=== PATIENT | female | born 1990 | race Caucasian/White ===

== ENCOUNTER → 2017-09-21 | Outpatient (CLI) | payer OTHER | LOC: ULTRA 11:06 | DX: R22.1 Localized swelling, mass and lump, neck (principal); Z80.8 Family history of malignant neoplasm of other organs or systems ==

== ENCOUNTER → 2017-11-23 | Outpatient (CLI) | payer OTHER | LOC: ULTRA 07:00 | DX: E04.2 Nontoxic multinodular goiter (principal); R22.1 Localized swelling, mass and lump, neck ==

== ENCOUNTER → 2018-03-15 | Outpatient (CLI) | payer OTHER | LOC: ULTRA 08:14 | DX: I10 Essential (primary) hypertension (principal); K80.20 Calculus of gallbladder without cholecystitis without obstruction ==

== ENCOUNTER → 2018-03-17 | Outpatient (CLI) | payer OTHER | LOC: ULTRA 07:21 | DX: K80.20 Calculus of gallbladder without cholecystitis without obstruction (principal); R53.83 Other fatigue ==

== ENCOUNTER → 2018-07-19 | Outpatient (CLI) | payer OTHER | LOC: MRI 09:39 | DX: R42 Dizziness and giddiness (principal); R51 Headache; R20.2 Paresthesia of skin ==